=== PATIENT | male | born 1965 | race Caucasian/White ===

== ENCOUNTER 2021-07-15 09:43 | Outpatient (CLI) | payer OTHER | END 2021-07-15 23:59 | disposition home or self-care (01) | LOC: RAD 09:43 | PROVIDERS: ATTEND Chiropractor | DX: M25.762 Osteophyte, left knee (principal); M76.9 Unspecified enthesopathy, lower limb, excluding foot; M77.31 Calcaneal spur, right foot; M17.0 Bilateral primary osteoarthritis of knee | CPT/HCPCS: 73600 ==